=== PATIENT | male | born 1970 | race Caucasian/White ===

== ENCOUNTER 2017-05-15 10:51 | Inpatient (IN) | payer MEDICAID ==
[~2017-05-15] VITALS: Ht 177.8 cm; Wt 97.0 kg
[~2017-05-15 10:51] MED LIST: CLON1TAB23 PO; LEVO137T22 PO; QUET150T PO; VENL75CA PO
[2017-05-15] MEDS ORDERED: ALPR-475 PO (11:13)
[2017-05-15] MEDS ORDERED: LAMO100T5 PO (11:13)
[2017-05-15 11:39] LABS: DAU SCREEN DISCLAIMER
[2017-05-15 11:59] LABS: HEMATOCRIT 48.1 % (39.2-51.8); WHITE BLOOD COUNT 6.6 x10^3/uL (3.4-10)
[2017-05-15 12:12] LABS: BLOOD UREA NITROGEN 11 mg/dL (7-18)
[2017-05-15 12:23] LABS: ASPARTATE AMINO TRANSFERASE 17 U/L (15-37)
[2017-05-15 12:35] LABS: ACETAMINOPHEN < 2 mcg/mL (10-30)
[2017-05-15] MEDS ORDERED: ONDANSETRON 2MG/ML, 2ML IVPush PRN (15:30)
[2017-05-15] MEDS ORDERED: BISACODYL 10 MG SUPP PR PRN (15:30)
[2017-05-15] MEDS ORDERED: DOCUSATE 100 MG CAPSULE PO PRN (15:30)
[2017-05-15] MEDS ORDERED: ACETAMINOPHEN 325 MG TABLET PO PRN (15:30)
[2017-05-15] MEDS ORDERED: POLYETHYLENE GLYCOL 17 GM PACKET PO PRN (15:30)
[2017-05-15] MEDS ORDERED: LORazepam 2 MG/ML, 1ML IVPush PRN (15:30)
[2017-05-15] MEDS ORDERED: ENOXAPARIN 40 MG/0.4 ML ONE (18:01)
[2017-05-15] MEDS: ENOXAPARIN 40 MG/0.4 ML SQ SCH (18:10)
[2017-05-15 18:55] VITALS: BP_SYST 161; BP_SYST 162; BP_SYST 183; BP_DIAS 100; BP_DIAS 101; BP_DIAS 118
[2017-05-15] MEDS ORDERED: QUETIAPINE FUMARATE HOMEMEDPO SCH (21:00)
[2017-05-15] MEDS: SODIUM CHLORIDE FLUSH 10ML SYR IVF SCH (22:30)
[2017-05-15] MEDS: LAMOTRIGINE 100 MG TABLET PO SCH (22:30)
[2017-05-15] MEDS: QUETIAPINE 100MG TABLET PO SCH (22:30)
[2017-05-15 22:36] VITALS: BP 183/94
[2017-05-16 04:39] VITALS: BP 133/89
[2017-05-16 08:24] VITALS: BP 143/101
[2017-05-16] MEDS: SODIUM CHLORIDE FLUSH 10ML SYR IVF SCH ×2 (09:00→22:31)
[2017-05-16] MEDS: METOPROLOL SUCCINATE 25 MG TAB.ER.24H PO SCH (09:52)
[2017-05-16] MEDS: KETOROLAC 30 MG/1 ML IVPush PRN ×3 (09:52→22:47)
[2017-05-16] MEDS: LAMOTRIGINE 100 MG TABLET PO SCH ×2 (09:52→22:31)
[2017-05-16 12:45] VITALS: BP 169/101
[2017-05-16] MEDS: NICOTINE 14MG/24 HR PATCH.TD24 TD SCH (13:10)
[2017-05-16] MEDS: ENOXAPARIN 40 MG/0.4 ML SQ SCH (18:43)
[2017-05-16 20:00] VITALS: BP 160/108
[2017-05-16] MEDS: QUETIAPINE 100MG TABLET PO SCH (22:31)
[2017-05-17 01:24] VITALS: BP 120/84
[2017-05-17] MEDS: METOPROLOL SUCCINATE 25 MG TAB.ER.24H PO SCH (05:48)
[2017-05-17] MEDS: KETOROLAC 30 MG/1 ML IVPush PRN ×2 (05:49→12:12)
[2017-05-17 07:32] VITALS: BP 138/98
[2017-05-17] MEDS: LAMOTRIGINE 100 MG TABLET PO SCH ×2 (09:34→21:39)
[2017-05-17] MEDS: SODIUM CHLORIDE FLUSH 10ML SYR IVF SCH ×2 (09:34→21:00)
[2017-05-17] MEDS ORDERED: LEVO75TA PO (09:56)
[2017-05-17] MEDS: NICOTINE 14MG/24 HR PATCH.TD24 TD SCH (13:18)
[2017-05-17 13:39] VITALS: BP 101/94
[2017-05-17] MEDS ORDERED: METO25TA91 PO (15:49)
[2017-05-17] MEDS: ENOXAPARIN 40 MG/0.4 ML SQ SCH (18:10)
[2017-05-17 19:15] VITALS: BP 159/99
[2017-05-17] MEDS: LORazepam 1MG TABLET PO PRN (19:44)
[2017-05-17 21:34] VITALS: BP 156/101
[2017-05-17] MEDS: QUETIAPINE 100MG TABLET PO SCH (21:39)
[2017-05-18 04:04] VITALS: BP 124/81
[2017-05-18] MEDS ORDERED: LEVOTHYROXINE 75 MCG TABLET PO SCH (06:00)
[2017-05-18] MEDS: METOPROLOL SUCCINATE 25 MG TAB.ER.24H PO SCH (06:20)
[2017-05-18 08:00] VITALS: BP 120/77
[2017-05-18] MEDS: LAMOTRIGINE 100 MG TABLET PO SCH (08:32)
[2017-05-18] MEDS: NICOTINE 14MG/24 HR PATCH.TD24 TD SCH (12:48)
[2017-05-18] MEDS: LORazepam 1MG TABLET PO PRN (12:55)
[2017-05-18] MEDS: ENOXAPARIN 40 MG/0.4 ML SQ SCH (17:16)
[2017-05-18 19:35] VITALS: BP 143/81
== END 2017-05-18 19:20 | disposition home or self-care (01) | DRG 880 ==
LOC: ED 13:09 → EDIP 13:10 → ED 13:38 → OBSVTOIN 15:17 → 4EST 18:50 → 4WST 05-16 20:47 → 3E 05-17 13:28
PROVIDERS: ADMIT Internal Medicine; ATTEND Internal Medicine
DX: R45.851 Suicidal ideations (principal); E03.9 Hypothyroidism, unspecified; E05.90 Thyrotoxicosis, unspecified without thyrotoxic crisis or storm; F12.90 Cannabis use, unspecified, uncomplicated; F17.210 Nicotine dependence, cigarettes, uncomplicated; F31.9 Bipolar disorder, unspecified; F42.9 Obsessive-compulsive disorder, unspecified; I11.9 Hypertensive heart disease without heart failure; J44.9 Chronic obstructive pulmonary disease, unspecified; Z82.49 Family history of ischemic heart disease and other diseases of the circulatory system
CPT/HCPCS: 36415; 80053; 80307; 80329; 84439; 84443; 84481; 85025; G0378; J1650; J1885; G0480; J2060